=== PATIENT | male | born 1990 | race Caucasian/White ===

== ENCOUNTER 2020-07-07 16:30 | Emergency (ER) | payer OTHER, SELFPAY ==
[~2020-07-07] VITALS: Ht 165.1 cm; Wt 65.8 kg
[2020-07-07 16:32] VITALS: Ht 165.1 cm; Wt 65.8 kg
[2020-07-07 17:42] VITALS: BP 121/74
== END 2020-07-07 17:42 | disposition home or self-care (01) ==
LOC: ED 16:30 → EDBD 16:30 → ED 17:42
DX: U07.1 COVID-19 (principal)
CPT/HCPCS: U0003